=== PATIENT | female | born 1975 ===

== ENCOUNTER 2017-06-01 09:14 | Inpatient (IN) | payer MEDICAID, SELFPAY ==
[2017-06-01 09:41] VITALS: BMI 29.0
[2017-06-01] MEDS ORDERED: Lactated Ringer's 1,000 ML IV SCH (09:42)
[2017-06-01] MEDS: Lactated Ringer's 1,000 ML IV SCH ×5 (09:45→14:55)
[2017-06-01 10:14] LABS: HEMOGLOBIN 13.2 g/dL (12.0-16.0); MEAN CELL VOLUME 84.4 fl (81.0-99.0); MEAN CORPUSCULAR HEMOGLOBIN 27.2 pg (27.0-31.0); MEAN CORPUSCULAR HGB CONC 32.2 g/dL (33.0-37.0); RBC 4.84 Mil/uL (3.80-5.20); RED CELL DISTRIBUTION WIDTH 15.1 % (11.5-14.5); WHITE BLOOD COUNT 9.1 K/uL (4.8-10.8)
[2017-06-01] MEDS ORDERED: Fentanyl/Bupivacaine HCl 250 ML EPI ONE (10:22)
[2017-06-01] MEDS ORDERED: Bupivacaine HCl 0.25% PF (10 ml) Inj ONE (10:23)
[2017-06-01 10:53] VITALS: RESP 18
[2017-06-01] MEDS ORDERED: Lidocaine 1% Inj (20ml) ONE (11:28)
--- NOTE | 2017-06-01 11:29 | OBHP ---
Datetime: 06/01/2017 10:22 IP Adm Impression: Term, intrauterine IP Admit Plan: Admit to unit Admit Comment, IP Provider: CC: CTX/pain HPI: A 41 y/o F , TIERRA 06/16/17, IUP@ 37.6wks GA comes to L_D for Uterine CTX and pain which st arted at 5am and progressively getting worse. ctx 5 mins apart and pain 9/10. - negative LOF/BV, +ctx/+FM POBH: , all at term w/out any complications PNI:none [facility] PMH: none PSH: lipoplasty in 2009 All: Metronidazole, body rash Meds: PNV SH: no A/D/T use FH: none Travelling: denies Falls: denies VS: 103/85 FHR: 144 Accel: 15x15 Decel: none CTX every 5-6 mins Category I PE: unremarkable 6cm,80%,-2 A: A 41 y/o F , TIERRA 06/16/17, IUP@ 37.6wks GA comes to L_D for Uterine CTX and pain, Latent phase of labor P: Admit to L_D f/u CBC/Type _ screen/RPR IVF Monitor labor progress monitoring Discussed L_D and pain management Epidural placed Case discussed with Dr. Sudarshan Butts, PGY-1 The patient was seen with rest and I agree with the notes Admit, routine labs, external monitor Adequate pelvis, vertex presentation, estimated weight 7 pounds Anticipate normal vaginal delivery Pelvic Type - PN: Adequate Extremities - PN: Normal Abdomen - PN: Normal Back - PN: Normal Lungs - PN: Normal Heart - PN: Normal Thyroid - PN: Normal Neurologic - PN: Normal HEENT - PN: Normal General - PN: Normal FHR - Baseline A Provider: 144 Gestation - Est Wks by US: 37.6 Vital Signs Provider: Reviewed IP Indication for Induction: Not Applicable IP Chief Complaint: Uterine contractions; Maternal discomfort NICHD Variability Prov Fetus A: Moderate 6-25bpm NICHD Accel Fetus A IP Provider: 15X15 FHR Category Provider Fetus A: Category I NICHD Decel Fetus A IP Provider: None Dilatation, Provider: 6 Effacement, Provider: 80 Station, Provider: -2
[2017-06-01] MEDS ORDERED: Oxycodone/Acetaminophen 5/325 mg Tab PO PRN ×2 (11:47)
[2017-06-01] MEDS ORDERED: Benzocaine/Menthol SPRAY TOP PRN (11:47)
[2017-06-01] MEDS ORDERED: Oxytocin 30 units/LR 500ML 30 U/500 ML BAG IV SCH (11:47)
--- NOTE | 2017-06-01 12:32 | OBDS ---
DELIVERY PERSONNEL Nurse Inspector [employer] Certified: carline Delivery Doctor: Gadiel Heaton MD Scrub Nurse: carline Physician Practice Administrator: Kaitlynn Desai RNC Anesthesiologist: Xenia Chirinos MD Atomic Physics Teacher: carline Resident: raina MATERNAL INFORMATION Delivery Anesthesia: Epidural Medications in Delivery: [id number] units in RL 1000cc Estimated Blood Loss (ml): 150cc Placenta Cultured: No RN Comments: to baby girl ; 9/9 ; no lacerations;had uneventful delivery see MD's notes Provider Comments: of a viable female at 11:47am, weight 3750gms with cephalic presentation ove r intact perineum with an of 9/9, lite meconium was noted. Infant's head was delivered in a con trolled manner at [place], with a lose nuchal cord that was easily reduced. body delivered easily, infant was bulb suctioned and placed on top of mother. cord was clamped and cut (by father). placenta deliv ered spontaneously intact at 11:50am. 3 vessols cord were noted and pitocin was started EBL: 150ml -Mayco Butts, PGY-1 I agree with the notes. I was in attendance throughout the delivery assisted in delivering the inf ant and placenta. LABOR SUMMARY EDC: 06/16/2017 00:00 No. Babies in Womb: 1 Attempted: No Labor Anesthesia: Epidural LABOR INFORMATION Reason for Induction: Not Applicable Onset of Labor: 06/01/2017 05:00 Complete Dilatation: 06/01/2017 11:30 Other Ripening Agents: na Oxytocin: na Group B Beta Strep: Negative Antibiotics # of Doses: 0 Antibiotics Time of Last Dose: na Steroids Given: None Reason Steroids Not Administered: Not Applicable MEMBRANES Membranes Rupture Method: Spontaneous Rupture of Membranes: 06/01/2017 11:08 Amniotic Fluid Color: Light Meconium Amniotic Fluid Amount: Small Amniotic Fluid Odor: Normal STAGES OF LABOR Stage 1 hrs: 6 Stage 1 min: 30 Total Time in Labor hrs: 6 Total Time in Labor min: 50 VAGINAL DELIVERY Episiotomy: None Laceration Extension: N/A Laceration Type: None Other Laceration: na Laceration Repair: Not Applicable Initial Vag Sponge Count: 5 Final Vag Sponge Count: 5 Initial Vag Sharps Count: 0 Final Vag Sharps Count: 0 Sponge Count Correct: Yes Sharps Count Correct: Yes Count Comment: correct CSECTION DELIVERY Primary Indication: N/A BABY A INFORMATION Method of Delivery: Born in Route : No : N/A Forceps: N/A Vacuum Extraction: Successful Shoulder Dystocia : No PRESENTATION/POSITION BABY A Presentation: Cephalic Cephalic Presentation: Vertex Vertex Position: Left Occipital Anterior Breech Presentation: N/A PLACENTA INFORMATION BABY A Placenta Delivery Time : 06/01/2017 11:50 Placenta Method of Delivery: Spontaneous Placenta Status: Delivered SCORES BABY A Heart Rate 1 min: >100 bpm Resp Effort 1 min: Good Cry Reflex Irritability 1 min: Cough or Sneeze or Pulls Away Muscle Tone 1 min: Active Motion Color 1 min: Body [place], Extremities Blue SCORE 1 MIN: 9 Heart Rate 5 min: >100 bpm Resp Effort 5 min: Good Cry Reflex Irritability 5 min: Cough or Sneeze or Pulls Away Muscle Tone 5 min: Active Motion Color 5 min: Body [place], Extremities Blue SCORE 5 MIN: 9 INFANT INFORMATION BABY A Gestational Age at Delivery: 37.6 Gestational Status: Term Outcome : Liveborn Condition : Stable Infant Sex: Female WEIGHT/LENGTH BABY A Infant Birthweight (gms): 3750 Infant Weight (lb): 8 Infant Weight (oz): 4 Length Inches: 52.00 Length cms: 132.1 CORD INFORMATION BABY A No. Cord Vessels: 3 Nuchal Cord : Around Neck x1, Loose Nuchal Cord Other: na True Knot: na Infant Cord pH Baby Arterial: na Cord pH Baby Venous: na Cord Blood Taken: Yes Banking/Donate Info: na Infant Suction: Mouth; Nose; Pharynx
[2017-06-02 07:55] LABS: MEAN CELL VOLUME 83.7 fl (81.0-99.0); MEAN CORPUSCULAR HEMOGLOBIN 27.7 pg (27.0-31.0); MEAN CORPUSCULAR HGB CONC 33.1 g/dL (33.0-37.0); RBC 4.32 Mil/uL (3.80-5.20); RED CELL DISTRIBUTION WIDTH 14.9 % (11.5-14.5); WHITE BLOOD COUNT 9.9 K/uL (4.8-10.8)
--- NOTE | 2017-06-02 07:55 | OBPPN ---
Datetime: 06/02/2017 05:48 PP Pain Prov: Within normal limits PP Nausea Prov: Denies PP Flatus Prov: Yes PP BM Prov: No PP Breasts Prov: Not Done PP Heart Prov: Normal PP Lungs Prov: Normal PP Abdomen/Uterus Prov: Normal PP Lochia Prov: Normal PP Vulva/Perineum Prov: Normal PP CVA Tenderness Prov: Not Done PP Extremities Prov: Normal PP C/S Incision Prov: Not Applicable PP Progress Prov: Normal PP Impression Prov: Normal progression PP Plan Prov: Continue present management PP Progress Note Prov: S: 41 YO who had a NVD on 06/01/17 @10:46. Pt is seen and examined by beds arnie in AM, family present in room. No overnight events. Endorses abdominal pain but well controlled by medications. Patient is ambulating to and from bathroom, breast feeding baby, tolerating diet. Loc hia is similar to menses and voiding freely. Denies n/v, fever, chills, chest pain, dyspnea, dizzines s, headache. + Flatus and no BM. PE: VS stable Gen: NAD CV: S1S2 no murmurs PUL: clear breath sounds b/l Abdomen: BS present, + tenderness, Uterus is firm Ext: no pedal edema, NT A/P 41 YO who had a NVD on 06/01/17 @10:46. VS is stable, pt remains afebrile, tolerating pain with pain medications, diet, and is doing well. OOB with caution Pt is ambulating continue Motrin, and Percocet for pain pt is encouraged to breastfeed and ambulate Follow up on PP cbc in AM care will continue Anticipate d/c to home tomorrow (06/03/17) Lucy Johny PGY-I OB Hospitalist Addendum: Pt seen and examined by me. Agree w/ above. PPD 1 s/p , doing well. (ES) IP PP Procedures: None Vital Signs Provider PP: Reviewed
[2017-06-02] MEDS: Multivitamin With Minerals Tab PO SCH (08:30)
[2017-06-02] MEDS ORDERED: Hydrocortisone-Pramoxine 1%-1% Foam(10 gm) TOP PRN (09:36)
[2017-06-02] MEDS ORDERED: Hydrocortisone-Pramoxine 1%-1% Foam(10 gm) ONE (09:42)
[2017-06-03] MEDS: Multivitamin With Minerals Tab PO SCH (08:01)
--- NOTE | 2017-06-03 11:47 | OBDCSUM ---
Datetime: 06/03/2017 05:49 Discharged to, Provider: [facility] Activity: Normal activity; May be up to bathroom; May be up for meals; May Shower Disch Instr Diet: Regular Discharge Instructions, Provider: Routine instructions given Discharge Diagnosis, Provider: Term Delivered Discharge Time: 06/03/2017 10:00 Follow up in weeks, Provider: 6 weeks for mom and 4-5 days for baby Disch Referrals: None Contraception discussed, Prov: Yes Disch Activity Restrictions: No exercising; No lifting; No driving; Minimize stair-climbing; No sexu al activity; Nothing in vagina - [place], tampons, douche Discharge Comment, Provider: 41 YO who had a NVD on 06/01/17 @10:46. Gave to baby girl, ashley ght of 3750. Pt had an uncomplicated . No complications during period, pt is ambu lating, minimal lochia, uterus is firm and NT. DISCHARGE INSTRUCTIONS: 1. Encourage 2. PNV 1 tab po q/day 3. Ibuprofen 600 mg 1 tab po prn q6 if moderate pain. Colace 100mg 1 tab PO BID for constipation 4. Ambulatory with caution, nothing per vagina, no heavy lifting, avoid stairs, if excessive bleed ing or fever without relief from Tylenol go to ED 5. F/U with in clinic in 6 weeks for PP, and 4-5 days for baby Lucy Johny, PGY-I Contraception after Delivery: Undecided
--- NOTE | 2017-06-03 11:48 | OBPPN ---
Datetime: 06/03/2017 05:48 PP Pain Prov: Within normal limits PP Nausea Prov: Denies PP Flatus Prov: Yes PP BM Prov: Yes PP Breasts Prov: Not Done PP Heart Prov: Normal PP Lungs Prov: Normal PP Abdomen/Uterus Prov: Normal PP Lochia Prov: Normal PP Vulva/Perineum Prov: Normal PP CVA Tenderness Prov: Not Done PP Extremities Prov: Normal PP C/S Incision Prov: Not Applicable PP Progress Prov: Normal PP Impression Prov: Normal progression PP Plan Prov: Continue present management; Discharge PP Progress Note Prov: 41 YO who had a NVD on 06/01/17 @10:46. Pt is seen and examined in AM, bryce ghter by bedside. No overnight events. Endorses minimal abdominal pain, well controlled medications. Endorses a headache last night, but resolved on its own. Patient is ambulating, breast feeding baby, tolerating diet. Lochia is minimal, and pt is voiding freely. Denies n/v, fever, chills, chest pain, dyspnea, dizziness. + Flatus and +BM. of note, hand sewer service used, [employer] [id number]. PE: VS stable Gen: NAD CV: S1S2 no murmurs PUL: clear breath sounds b/l, no wheezing Abdomen: BS+, NT, Uterus is firm Ext: no pedal edema, NT A/P 41 YO who had a NVD on 06/01/17 @10:46. VS is stable, pt remains afebrile, tolerating pain with pain medications, PO diet, doing well. Pt is ambulating Motrin for pain Colace for constipation pt is encouraged to breastfeed and ambulate d/c to home today follow up in clinic in 6wks for PP and 4-5 days for baby Lucy Johny PGY-I Addendum by Dr. Last: I have evaluated the patient independently and I agree with the above, the patient is for discharge IP PP Procedures: None Vital Signs Provider PP: Reviewed
[2017-06-03 17:28] VITALS: BP 95/54; PULSE 57; TEMP 98.6; O2SAT 100
== END 2017-06-03 12:48 | disposition home or self-care (01) | DRG 775 ==
LOC: H.EROB2 09:14 → H.L&D 09:42 → H.OB/GYN 15:47
PROVIDERS: ADMIT Obstetrics & Gynecology Gynecology; ATTEND Obstetrics & Gynecology Gynecology
PROC: 10E0XZZ Delivery of Products of Conception, External Approach (ICD-10-PCS; principal; 2017-06-01)
PROC: 4A1HXCZ Monitoring of Products of Conception, Cardiac Rate, External Approach (ICD-10-PCS; 2017-06-01)
DX: O69.81X0 Labor and delivery complicated by cord around neck, without compression, not applicable or unspecified (principal); K59.00 Constipation, unspecified; Z37.0 Single live birth; O77.0 Labor and delivery complicated by meconium in amniotic fluid; Z3A.39 39 weeks gestation of pregnancy